=== PATIENT | female | born 2000 | race Caucasian/White ===

== ENCOUNTER 2020-01-30 09:17 | Emergency (ER) | payer BC ==
[~2020-01-30] VITALS: Ht 162.6 cm; Wt 54.5 kg
[2020-01-30 09:23] VITALS: TEMP 98.5
[2020-01-30] MEDS ORDERED: JUNEL 1.5 MG-31 EACH PO (09:41)
[2020-01-30 11:30] VITALS: BP 121/83; PULSE 84
== END 2020-01-30 11:30 | disposition home or self-care (01) ==
LOC: COL.ER 09:17
DX: K13.0 Diseases of lips (principal); Z91.040 Latex allergy status